=== PATIENT | female | born 1990 | race African-American/Black ===

== ENCOUNTER 2019-03-26 20:22 | Emergency (ER) | payer OTHER ==
[~2019-03-26] VITALS: Ht 175.3 cm; Wt 70.5 kg
[2019-03-26] MEDS ORDERED: GNP28TAB2 PO (20:28)
[2019-03-26 21:00] LABS: BASO % 0.3 % (0.0-1.0); EOS # 0.1 10^3/uL (0.0-0.5); HEMATOCRIT 41.3 % (36.0-47.0); HEMOGLOBIN 13.3 g/dl (12.0-15.5); LYMPH # 2.1 10^3/uL (1.5-5.0); LYMPH % 34.7 % (24.0-44.0); MEAN CORPUSCULAR HEMOGLOBIN 27.9 pg (27.0-33.0); MEAN CORPUSCULAR HGB CONC 32.2 g/dl (32.0-36.5); MEAN CORPUSCULAR VOLUME 86.6 fl (80.0-96.0); MONO # 0.4 10^3/uL (0.0-0.8); MONO % 6.5 % (0.0-5.0); NEUTROPHILS # 3.4 10^3/uL (1.5-8.5); NEUTROPHILS % 57.2 % (36.0-66.0); PLATELET COUNT, AUTOMATED 261 10^3/uL (150-450); RED BLOOD COUNT 4.77 10^6/uL (4.00-5.40)
[2019-03-26] MEDS ORDERED: ACETAMINOPHEN TAB 650MG DOSE (2X325MG) PO ONE (21:00)
[2019-03-26 21:26] LABS: BLOOD UREA NITROGEN 19 MG/DL (7-18); CALCIUM LEVEL 9.1 MG/DL (8.5-10.1); CARBON DIOXIDE LEVEL 26 MEQ/L (21-32); CHLORIDE LEVEL 105 MEQ/L (98-107); CREATININE FOR GFR 0.76 MG/DL (0.55-1.30); GLOMERULAR FILTRATION RATE > 60.0 (>60); GLUCOSE, FASTING 92 MG/DL (70-100); HCG, SERUM QUANTITATIVE 10507 MIU/ML; SODIUM LEVEL 138 MEQ/L (136-145)
--- NOTE | 2019-03-26 22:00 | REPVR ---
PROCEDURE INFORMATION: Exam: US First Trimester, Transabdominal Exam date and time: 03/26/2019 9:02 PM Age: 28 years old Clinical history: Lmp or gestational age (in weeks): 8w6d; Other: Vaginal bleeding and cramping; TECHNIQUE: Imaging protocol: Real-time transabdominal obstetrical ultrasound of the maternal pelvis and a first trimester , less than 14 weeks 0 days, with image documentation. COMPARISON: No relevant prior studies available. FINDINGS: GESTATION: Gestation: 5 week and 1 day intrauterine gestation sac without pole by transabdominal technique. Uncertain significance, recommend short-term clinical followup to evaluate potential for early failure. Heart rate: Not present. Placenta: Not applicable. Amniotic fluid: Unremarkable. BIOMETRY: Estimated gestational age: 5 weeks and 1 day. MATERNAL: Uterus: 9 x 4.1 x 4.9 cm anteverted uterus. Slightly irregular heterogeneous endometrium. Cervix: Unremarkable. Right adnexa: 1.8 cm right ovarian collapsing ovarian cyst. Left adnexa: Unremarkable. Intraperitoneal: No intraperitoneal free fluid. IMPRESSION: 1. 5 week and 1 day intrauterine gestation sac without pole by transabdominal technique. Recommend short-term followup. 2. Slightly irregular heterogeneous endometrium. Uncertain significance, recommend short-term clinical followup to evaluate potential for early failure. Electronically signed by: Roc Weathers On 03/26/2019 22:00:45 PM
[2019-03-26] MEDS ORDERED: OXYCODONE/APAP 5MG/325MG(BULK FOR ED) 1 TABLET PO ONE (23:00)
[2019-03-26 23:05] VITALS: BP 109/64
== END 2019-03-26 23:17 | disposition home or self-care (01) ==
LOC: M ED 20:22
DX: O20.0 Threatened abortion (principal); Z3A.01 Less than 8 weeks gestation of pregnancy

== ENCOUNTER → 2019-03-28 | Outpatient (CLI) | payer OTHER ==
[~2019-03-28] MED LIST: GNP28TAB2 PO
== END ==
LOC: M LAB 08:34
PROVIDERS: ATTEND Physician Assistant
DX: O20.0 Threatened abortion (principal)

== ENCOUNTER → 2019-04-08 | Outpatient (CLI) | payer OTHER | LOC: M LAB 09:47 | PROVIDERS: ATTEND Obstetrics & Gynecology | DX: O02.81 Inappropriate change in quantitative human chorionic gonadotropin (hCG) in early pregnancy (principal) ==

== ENCOUNTER → 2019-12-09 | Outpatient (CLI) | payer OTHER ==
[~2019-12-09] MED LIST changes: +MAPA500T2 PO; +TUMS500C PO
== END ==
LOC: M LDO 02:45
PROVIDERS: ATTEND Obstetrics & Gynecology
DX: O26.892 Other specified pregnancy related conditions, second trimester (principal); Z3A.21 21 weeks gestation of pregnancy
CPT/HCPCS: 59025; G0378; G0463

== ENCOUNTER 2020-03-06 17:28 | Outpatient (CLI) | payer OTHER ==
[~2020-03-06] VITALS: Ht 175.3 cm; Wt 79.9 kg
[~2020-03-06 17:28] MED LIST changes: -MAPA500T2 PO; -TUMS500C PO
[2020-03-06 17:48] VITALS: BP 130/72
[2020-03-06] MEDS ORDERED: TUMS500C PO (18:38)
[2020-03-06] MEDS ORDERED: MAPA500T2 PO (18:38)
[2020-03-06 19:09] VITALS: BP 102/57
[2020-03-06 20:02] VITALS: BP 104/68
--- NOTE | 2020-03-06 21:16 | IPNPDOC ---
Text Note Date of Service The patient was seen on 03/06/20. NOTE 03/06/20 1930 HOURS PATIENT SEEN IN TRIAGE STORY IS THURSDAY CONTRACTIONS PELVIC PAIN HEADACHES CONSTIPATED BUT HAD BM THURSDAY NIGHT. THURSDAY CONTRACTIONS NAUSEATED ATE A LITTLE THURSDAY NAUSEATED ATE A LITTLE THURSDAY CONTRACTIONS TOO TIRED TO GO TO WORK ATE AT 1500 HOURS, TODAY HUNGRY DIZZY.DRINKING ALL TIME. GOOD MOVEMENT NO BLEEDING NO DISCHARGE MAIN COMPLAINTS WHEN RUNS LOWER PELVIC PAIN , FATIGUE . SUGGESTED THIS IS PART OF BEING AT 34.1 WEEKS. EXAMINATION NOT UNCOMFORTABLE NO DISTRESS SF HEIGHT APPROPRIATE 4 QUADRANT BS NOTED CATEGORY 1 STRIP NO DECELERATIONS MODERATE VARIABILITY BASELINE NORMAL , US REVIEWED AND CONSENTED VERTEX LIMB MOTION NOTED SPONTANEOUS RESPIRATIONS CARDIAC ACTIVITY NOTED. MARKUS 4 QUADRANT 13,82 CM SMALLEST POCKET 2.86 CM . REVIEWED PRECAUTIONS KEEP FT DRUM APPOINTMENT GET SMALLER MATERNITY BELT THAT FITS DISCHARGED UNDELIVERED. CERVIX ON US 3.25 CM NO FUNNELING ON VALSALVA VS,Fishbone, I+O VS, Fishbone, I+O Vital Signs Date Time Temp Pulse Resp B/P (MAP) Pulse Ox O2 Delivery O2 Flow Rate FiO2 03/06/20 20:02 51 18 104/68 (80) 03/06/20 19:09 97.6 03/06/20 17:48 100 Dewayne Avila MD Mar 06, 2020 21:16
== END 2020-03-06 20:20 | disposition home or self-care (01) ==
LOC: M LDO 17:28
PROVIDERS: ATTEND Obstetrics & Gynecology
DX: O26.813 Pregnancy related exhaustion and fatigue, third trimester (principal); O26.893 Other specified pregnancy related conditions, third trimester; R10.2 Pelvic and perineal pain; Z3A.34 34 weeks gestation of pregnancy
CPT/HCPCS: 59025; 76815; G0378; G0463

== ENCOUNTER 2020-04-04 23:09 | Inpatient (IN) | payer OTHER ==
[~2020-04-04] VITALS: Ht 175.3 cm; Wt 82.6 kg
[2020-04-04] MEDS: LR 1,000 ML IV SCH (00:42)
[~2020-04-04 23:09] MED LIST changes: +MAPA500T2 PO; +TUMS500C PO
[2020-04-04] MEDS ORDERED: LACTATED RINGER'S 1000 ML IV STA (23:52)
--- NOTE | 2020-04-05 00:11 | HPEPDOC ---
Obstetrical History & Physical General Date of Admission Apr 04, 2020 at 23:28 History of Present Illness 29 yo at 38+4 weeks gestation by LMP of 09Jul2019 c/w 14+5 week US on present to L&D with regular, painful contractions and some vaginal bleeding. She reports her water possibly broke at ~1600 and the fluid has been bloody. She endorses movement. Chief Complaint: Contractions, term Information Provided By: Patient Age: 29 : 2 Term: 0 Pre-term: 0 Abortions: 1 Livin Care Care: Good Care Dating Final EDC: Apr 14, 2020 Final EDC for Daily Update: Apr 14, 2020 Final EDC by: LMP (LMP of 09Jul2019 set FARRUKH of [id number], this is c/w 14+5 week US on 19Oct2019) Antepartum Course Diagnos(e)s Initial low lying placenta --> resolved on follow up imaging Measuring size less than dates --> growth scan on 02Apr2020 demonstrated fetus in 50th percentile by weight Varicella non immune Past Medical History Past Obstetrical History : Past Obstetrical History: Multigravida (G1 - early SBA, G2 - current ) Complications: No 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 Past Medical History Medical History Denies Surgical History: Denies/None Family History Significant Family History: No pertinent family hx Social History Marital Status: Family situation: Spouse/partner home Psychosocial History: No pertinent psych hx * Smoker: non-smoker Alcohol: Denies Drugs: denies Abuse Violence Screening Have you been hit/kicked/slapp: No Have you been sexually assault: No Imunizations Tdap status: current Influenza Status: current Allergies Coded Allergies: No Known Allergies (Unverified , 03/26/19) Medications Scheduled Pnv No.95/Ferrous Fum/Folic AC ( Vitamins Tablet) 1 Each Tablet, 1 TAB PO DAILY Scheduled PRN Acetaminophen (Mapap) 500 Mg Tablet, 1,000 MG PO PRN PRN for HEADACHE Calcium Carbonate (Tums) 200 Mg Tab.chew, 1,000 MG PO PRN PRN for HEARTBURN Physical Examination Physical Examination GENERAL: Alert and oriented times three. ABDOMEN: Gravid and non-tender to touch. FETUS: Is vertex (VTX) by sterile vaginal examination (SVE) EXTREMITIES: No edema. Laboratory Data [facility] Laboratory Tests 2 12/2/20 23:44: Serology Scanned Report Hepatitis B Testing Urine Culture: No Growth Pertinent Laboratoy Data Blood Type: O+ RBC Antibody Screen: Negative HIV: Negative Hepatitis B: Negative Hepatitis C: Unknown Rapid Plasma Reagin: Nonreactive Rubella: Immune Varicella: Nonreactive Chlamydia/Gonorrhea: Negative Group B Streptococcus: Negative Quad Screen Test: Negative Cystic Fibrosis: Negative Glucose Tolerance Test: 78 Anatomy Ultrasound Placenta Location: Anterior Normal Anatomy: Yes Placenta Previa: No Other Ultrasounds Growth scan on [id number] had fetus in the 50th percentile by weight. Anterior placenta, and no evidence of previa Steroid Therapy Steroid Therapy: No Vaginal Examination Dilation: 4 cm Effacement: 100% Station: -2 Cervical Consistency: Soft Cervical Position: Middle Presentation: Cephalic presentation Position: Vertex (occiput) Assessment Heart Rate (FHR): 135 Variability: Moderate Accelerations: Positive Decelerations: Late (Had a couple late decels upon presentation that resolved with IV fluids and positional changes) Tocometer Contractions: Yes Frequency: regular Strength: palpated as moderate Assessment/Plan Assessment 29 yo at 38+4 weeks gestation presents to L&D with regular, painful contractions and bloody show. Plan Admit to L&D for expectant management of labor. Apply IV fluids. GBS negative. Clear liquid diet. Patient may have epidural if desired. Anticipate . Johnson Carmona, DO Labor and Delivery Counseling Vaginal / Operative vaginal delivery / C section counseling We will deliver your baby through the vagina with possible assistance of forceps or vacuum device if needed for maternal or indications. Forceps and vacuum are devices that can assist with vaginal delivery when normal pushing efforts cannot achieve delivery on their own or when delivery is needed in an emergency for baby's well-being. Medications may be required to induce or augment (help) your labor in order to achieve a vaginal delivery. An episiotomy may be required to help your baby to delivery vaginally. You may also require repair of any lacerations or tears of your vagina or vulva that are caused by delivery. In some cases, emergencies can occur that require an emergency section delivery so quickly that there may not be enough time to stop and complete consent forms for section. Understand that if this occurs, your providers will discuss the need for a section with you before they proceed with surgery. section is the delivery of your baby through an incision in your abdomen. In some situations, section may be safer to mom and baby than continuing labor and is only performed when clinically indicated. Risks of vaginal delivery include but are not limited to: Bleeding, infection, injury to the vagina, pelvic structures, injury to baby, damage to the uterus, reactions to anesthesia, uterine rupture, risk of hysterectomy for life threatening bleeding, or . Medications used to induce or augment labor may increase your risk for infection, uterine tachysystole, uterine rupture, heart rate abnormalities, need for emergency delivery or possible c esarean hysterectomy, and hemorrhage. Additional risks for use of forceps and vacuum include: increased risk of perineal and vaginal lacerations, risk of urinary or bowel incontinence, increased risk of injury to baby with bruising, scratches, hematomas on the head, or intracranial bleeding. Ms. Oswald appears to understand these risks and elects to proceed . She also consents to a blood transfusion if necessary. DO MIKALA Griffith CHRISTOPHER J. DO Apr 05, 2020 00:11
[2020-04-05 00:44] LABS: HEMATOCRIT 39.3 % (36.0-47.0); MEAN CORPUSCULAR HEMOGLOBIN 28.4 pg (27.0-33.0); MEAN CORPUSCULAR HGB CONC 33.1 g/dl (32.0-36.5); PLATELET COUNT, AUTOMATED 213 10^3/uL (150-450); RED BLOOD COUNT 4.57 10^6/uL (4.00-5.40); WHITE BLOOD COUNT 11.9 10^3/uL (4.0-10.0)
[2020-04-05] MEDS ORDERED: OXYTOCIN 30 UNITS IN 0.9% NaCl 500ML IV BAG (J2590) As Ordered ONE (01:40)
[2020-04-05] MEDS ORDERED: FENTANYL 2MCG/ML ROPIVACAINE 0.2% IN 0.9% NACL 100ML IVBAG As Ordered ONE (02:31)
--- NOTE | 2020-04-05 02:31 | IPNPDOC ---
Text Note Date of Service The patient was seen on 04/05/20. NOTE Patient reporting increased discomfort with contractions. Cervix: 9/C/-1. Bag of water palpated and AROM performed with meconium stained fluid. FHR Cat II, but with moderate variability and positive accels. 3 minute decel down to the 90s about 25 minutes ago. This resolved. Patient now desires an epidural. Will contact anesthesia. Safe to proceed. DO Mathew VS,Evaristo, I+O VS, Evaristo, I+O Laboratory Tests 04/05/20 00:36 CHRISTOPH BACH DO Apr 05, 2020 02:30
[2020-04-05 03:30] LABS: CORD GAS ABE A -5.1; CORD GAS ABE V -6.8; CORD GAS HCO3 A 24.3 MEQ/L; CORD GAS HCO3 V 21.6 MEQ/L; CORD GAS O2 SAT A 25.7 %; CORD GAS O2 SAT V 33.9 %; CORD GAS PCO2 A 64.3 mmHg; CORD GAS PCO2 V 54.9 mmHg; CORD GAS PH A 7.195 UNITS; CORD GAS PH V 7.212 UNITS; CORD GAS PO2 A 14.2 mmHg; CORD GAS PO2 V 17.8 mmHg; CORD GAS SBC A 18.7 MEQ/L; CORD GAS SBC V 17.6 MEQ/L; CORD GAS TCO2 A 26.3 MEQ/L; CORD GAS TCO2 V 23.2 MEQ/L
[2020-04-05] MEDS ORDERED: OXYTOCIN DRIP 30 UNITS in IV 1 EA IV SCH (03:55)
--- NOTE | 2020-04-05 03:55 | DNPDOC ---
[facility] Delivery Note Delivery Note DATE OF DELIVERY: 05Apr2020 at ~0300 PREDELIVERY DIAGNOSIS: 38+4 weeks gestation and active labor POST DELIVERY DIAGNOSIS: Delivered. PROCEDURE: Spontaneous vaginal delivery REPLENISHER: Dr. Carmona ANESTHESIA: None ESTIMATED BLOOD LOSS: 300 mL. FINDINGS: 6 pound 8 ounce male , Scores 4/6/8 DELIVERY SUMMARY: Called to room for delivery. The bed was broken down and Kafilat was prepped. With excellent effort over about 15 minutes of pushing, her baby delivered. Presentation was WALT with restitution to ROT. The left anterior shoulder delivered with gentle guidance followed easily by the remainder of the body. The was dried and stimulated on the field. There was initially poor tone and lack of a spontaneous cry. I clamped and cut the cord and transferred care of the to the awaiting team. I obtained arterial and venous cord gases. Third stage was then completed spontaneously. The placenta had an area of 25% consistent in appearance with abruption. The uterus was firmed with massage and pitocin was administered IV bolus. Inspection of the cervix, vagina, labia, and perineum revealed bilateral labial lacerations. These were repaired with 3-0 vicryl suture in the usual fashion after injection of lidocaine for analgesia. There was excellent cosmesis and hemostasis after the repairs. The fundus was palpated again and was firm. Sponge, instrument, and needle counts were correct X2. Mother and stable when I left the room. Infant had been transferred to the maternal abdomen for and bonding before I left the room. DO MIKALA Griffith CHRISTOPHER J. DO Apr 05, 2020 03:55
[2020-04-05] MEDS ORDERED: BENZOCAINE 20% HEMORRHOIDAL OINTMENT 28GM TUBE TOP PRN (04:00)
[2020-04-05] MEDS ORDERED: MEASLES,MUMPS,RUBELLA VACCINE INJ (MMR-II) (90707) SC SCH (04:00)
[2020-04-05] MEDS ORDERED: IBUPROFEN 600MG TAB PO PRN (04:00)
[2020-04-05] MEDS ORDERED: ACETAMINOPHEN 500 MG TAB PO PRN (04:00)
[2020-04-05] MEDS ORDERED: ACETAMINOPHEN TAB 650MG DOSE (2X325MG) PO PRN (04:00)
[2020-04-05] MEDS ORDERED: RHOGAM 300 MCG (1500 IU) INJ (J2790) IM SCH (04:00)
[2020-04-05] MEDS ORDERED: ONDANSETRON 4MG/2ML VIAL IV PRN (04:00)
[2020-04-05] MEDS ORDERED: LIDOCAINE 1% MDV 20ML VIAL SC ONE (04:15)
[2020-04-05 05:30] VITALS: BP 130/59
[2020-04-05] MEDS: LR 1,000 ML IV SCH (07:52)
[2020-04-05] MEDS: PRENATAL VITAMINS CHEWABLE TABLET PO SCH (08:17)
[2020-04-05 18:00] VITALS: BP 111/59
[2020-04-05] MEDS: DOCUSATE SODIUM 100MG CAPSULE PO PRN (20:26)
[2020-04-06 06:00] VITALS: BP 111/64
[2020-04-06] MEDS ORDERED: DOK1CAP7 PO (08:39)
[2020-04-06] MEDS ORDERED: IBUP-1022 PO (08:39)
[2020-04-06] MEDS: PRENATAL VITAMINS CHEWABLE TABLET PO SCH (08:52)
--- NOTE | 2020-04-06 09:52 | DSES ---
DISCHARGE SUMMARY DATE OF ADMISSION: 04/04/2020 DATE OF DISCHARGE: 04/06/2020 BRIEF HISTORY: This 29-year-old 3, now para 1, admitted with contractions and vaginal bleeding with spontaneous rupture of membranes at 38 weeks 4 days gestation. She had a spontaneous vaginal delivery of a live male infant 6 pounds 8 ounces (2950 grams). Apgars were 4, 6, 8 and at one, five, and ten minutes. Arterial pH 7.19, base excess -5.1; venous pH 7.21, base excess -6.8. Baby had BPV x60 seconds. There was a 25% abruption noted at the delivery of the placenta. She had bilateral labial lacerations, which were repaired in the usual fashion. On her second day, we discussed phlebitis, cystitis, mastitis, metritis, endometritis, cellulitis, diet, exercise, pain management; and perineal, breast, and wound care. On discharge, her vital signs were 111/64, respirations 18, pulse 62, temperature 97.8. Her admitting hemoglobin was 13.0, hematocrit 39.3, and platelets were 213,000. DISCHARGE DISPOSITION: In summary, a term gestation delivered a live male . Plans are to pick medications at [place]. Six weeks checkup at [facility]. All questions were answered, 20 minute discussion.
[2020-04-06 18:03] VITALS: BP 112/68
[2020-04-06] MEDS: DOCUSATE SODIUM 100MG CAPSULE PO PRN (19:43)
[2020-04-06] MEDS: IBUPROFEN 800 MG TAB PO PRN (19:44)
[2020-04-07 06:00] VITALS: BP 112/63
[2020-04-07] MEDS: PRENATAL VITAMINS CHEWABLE TABLET PO SCH (08:39)
[2020-04-07] MEDS: IBUPROFEN 800 MG TAB PO PRN (18:18)
--- NOTE | 2020-04-09 08:34 | IPN ---
PROGRESS NOTE DATE: 04/05/2020 This patient has been requested circumcision of their male . After discussing risks and benefits of circumcision, the medical and nonmedical indications, the penile block and aftercare, expressed understanding of penile block, aftercare and bleeding, signed the consent form. All questions were answered, 20 minute discussion. 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
== END 2020-04-07 18:20 | disposition home or self-care (01) | DRG 807 ==
LOC: M LDO 23:09 → M LDI 23:28 → M OBS 04-05 08:12
PROVIDERS: ADMIT Obstetrics & Gynecology; ATTEND Obstetrics & Gynecology
PROC: 10E0XZZ Delivery of Products of Conception, External Approach (ICD-10-PCS; principal; 2020-04-05)
PROC: 0HQ9XZZ Repair Perineum Skin, External Approach (ICD-10-PCS; 2020-04-05)
PROC: 10907ZC Drainage of Amniotic Fluid, Therapeutic from Products of Conception, Via Natural or Artificial Opening (ICD-10-PCS; 2020-04-05)
DX: O45.93 Premature separation of placenta, unspecified, third trimester (principal); Z37.0 Single live birth; O70.0 First degree perineal laceration during delivery; Z3A.38 38 weeks gestation of pregnancy

== ENCOUNTER 2020-10-08 11:12 | Emergency (ER) | payer OTHER ==
[~2020-10-08] VITALS: Ht 175.3 cm; Wt 80.6 kg
[2020-10-08 11:12] VITALS: BP 134/83
[~2020-10-08 11:12] MED LIST changes: +DOK1CAP7 PO; +IBUP-1022 PO
[2020-10-08] MEDS ORDERED: CIPR7.5D2 (11:19)
[2020-10-08] MEDS ORDERED: AMOX875T2 (11:19)
[2020-10-08] MEDS ORDERED: PREN27TA3 (11:19)
== END 2020-10-08 16:59 | disposition home or self-care (01) ==
LOC: M ED 11:12
DX: H60.92 Unspecified otitis externa, left ear (principal)

== ENCOUNTER → 2021-02-20 | Outpatient (CLI) | payer OTHER ==
[~2021-02-20] MED LIST changes: +AMOX875T2; +CIPR7.5D2; +DOK1CAP4 PO; -DOK1CAP7 PO; +ISOVUE-300 61% 50ML VIAL As Ordered ONE; +LIDOCAINE 1% MDV 20ML VIAL As Ordered ONE; +PREN27TA3; +TRIAMCINOLONE ACETONIDE SUSP 40 MG/ML VIAL (J3301) As Ordered ONE
--- NOTE | 2021-02-20 18:43 | REP ---
INDICATION: SPRAIN OF LT HIP. COMPARISON: None TECHNIQUE: The procedure was performed by ED Boo, under the direct supervision of Dr. Monroe. The benefits and risks of the procedure were explained to the patient, and an informed consent was obtained. Directly prior to the start of the procedure, a formal time-out was completed in the procedure room. The left hip joint space was localized using fluoroscopic guidance. The skin was prepped and draped in a sterile fashion. Approximately 5 mL of 1% Lidocaine 10 mg/ml was used as a local anesthetic. Using fluoroscopic guidance, a #22 gauge spinal needle was inserted and advanced into the left hip joint space. Approximately 1 mL of Isovue 300 was injected to verify placement. Ten mL of a solution containing 9 mL 1% lidocaine 10 mg/ml and 1 was injected into the joint space. The needle was removed and hemostasis was achieved. FINDINGS: The patient tolerated the procedure well and there were no immediate complications. IMPRESSION: 1. Technically successful left hip arthrogram. 0.1 minutes of fluoroscopy time was utilized for this procedure. Some fluoroscopic images are performed with last image hold technology. These images require no additional radiation. <Electronically signed by Steph Lind > 02/20/21 1540 <Electronically signed by David Monroe > 02/20/21 [id number]
== END ==
LOC: M RADPRO 14:37
PROVIDERS: ATTEND Physician Assistant Surgical
DX: M24.852 Other specific joint derangements of left hip, not elsewhere classified (principal)
CPT/HCPCS: 20610; 77002; J3301; Q9967